=== PATIENT | male | born 1940 | race Caucasian/White ===

== ENCOUNTER 2018-04-13 05:36 | Observation (INO) | payer MEDICARE, OTHER ==
--- NOTE | 2018-04-10 11:24 | Diagnostic Imaging Report ---
PROCEDURE: Frontal and lateral views of the chest. COMPARISON: Patients [facility], DX, CHEST 2 VIEWS, 10/16/2016, 15:41. INDICATIONS: PREOPERATIVE CHEST XRAY FOR KNEE SURGERY FINDINGS: Lines/tubes: None. Lungs: The lungs are well inflated. Mild patchy bibasilar opacities, left greater than right. No evidence of lobar consolidation or pulmonary edema. Pleura: There is no pleural effusion or pneumothorax. Heart and mediastinum: The cardiomediastinal silhouette is unchanged. Status post CABG. Bones: No acute bony abnormality. Status post median sternotomy. IMPRESSION: No evidence of pulmonary edema or lobar pneumonia. Mild patchy bibasilar opacities, likely atelectasis. Dictated by: GABY CASTANEDA M.D. on 04/10/2018 at 10:24 Electronically approved by: GABY CASTANEDA M.D. on 04/10/2018 at 10:24
[~2018-04-13] VITALS: Ht 193 cm; Wt 117.9 kg
[~2018-04-13 05:36] MED LIST: ALEVE220 MG PO; ASPIR 8181 MG PO; CARVEDILOL25 MG PO; COLACE PO; FLOMAX0.4 MG PO; FUROSEMIDE20 MG PO; LOSARTAN POTASS50 MG PO; NITROFURANTOIN100 MG PO; SIMVASTATIN40 MG PO; TYLENOL PO; ZETIA10 MG PO
[2018-04-13] MEDS ORDERED: ROPIVACAINE 246.25 MG, EPINEPHRINE HCL 1:1000 0.5 MG, CLONIDINE HCL 0.08 MG, KETOROLAC ... INJ ONE ×5 (06:00)
[2018-04-13] MEDS ORDERED: CELECOXIB 200 MG CAP ONE (06:04)
[2018-04-13] MEDS ORDERED: DEXAMETHASONE SOD PHOS 10 MG/1 ML VIAL ONE (06:04)
[2018-04-13] MEDS ORDERED: CEFAZOLIN SOD 2 GM/D5W 50ML 50 ML IV ONE (06:05)
[2018-04-13] MEDS ORDERED: GABAPENTIN 300 MG CAP ONE (06:05)
[2018-04-13] MEDS ORDERED: MUPIROCIN 2% OINT 22 GM TUBE ONE (06:50)
[2018-04-13] MEDS ORDERED: BACITRACIN 50,000 UNIT VIAL ONE (06:50)
[2018-04-13] MEDS ORDERED: TRANEXAMIC ACID 1,000 MG/10 ML ML ONE (06:50)
[2018-04-13] MEDS ORDERED: ACETAMINOPHEN 650 MG SUPP PR PRN (10:00)
[2018-04-13] MEDS ORDERED: PROMETHAZINE HCL (IM) 25 MG/ML VIAL IM PRN (10:00)
[2018-04-13] MEDS ORDERED: ONDANSETRON HCL INJ 2 MG/ML VIAL IV PRN (10:00)
[2018-04-13] MEDS ORDERED: HYDROCODONE/APAP 5MG-325MG TAB PO PRN (10:00)
[2018-04-13] MEDS ORDERED: DOCUSATE SODIUM 100 MG CAP PO PRN (10:00)
[2018-04-13] MEDS ORDERED: HYDROCODONE/APAP 7.5MG-325MG 1 EA TAB PO PRN (10:00)
[2018-04-13] MEDS ORDERED: DIPHENHYDRAMINE HCL INJ 50 MG/ML VIAL IM/IV PRN (10:00)
[2018-04-13] MEDS ORDERED: KETOROLAC TROMETHAMINE 30 MG/ML VIAL IV PRN (10:00)
--- NOTE | 2018-04-13 11:36 | Diagnostic Imaging Report ---
PROCEDURE: X-RAY RIGHT KNEE, ONE OR TWO VIEWS COMPARISON: None. INDICATIONS:POST OP KNEE FINDINGS: See conclusion. CONCLUSION: Status post total right knee arthroplasty and patellar resurfacing with surrounding soft tissue swelling, air and david consistent with recent surgery. Alignment is anatomic. Hardware appears intact. No evidence of acute fracture. Dictated by: GABY CASTANEDA M.D. on 04/13/2018 at 11:42 Electronically approved by: GABY CASTANEDA M.D. on 04/13/2018 at 11:42
[2018-04-13] MEDS: ACETAMINOPHEN 1000 MG/100 ML IV SCH ×2 (12:00→18:30)
[2018-04-13 12:32] VITALS: BP 132/88
[2018-04-13 13:21] VITALS: BP 132/88
[2018-04-13] MEDS ORDERED: ROPIVACAINE 0.5% 5 MG/ML 30 ML SDV ONE (13:47)
[2018-04-13] MEDS ORDERED: LIDOCAINE 2% /EPINEPHRINE 20 ML SDV INJ ONE (13:47)
[2018-04-13] MEDS ORDERED: MIDAZOLAM HCL 2 MG/2 ML VIAL ONE (13:55)
[2018-04-13] MEDS ORDERED: FENTANYL CITRATE/PF 100MCG/2 ML INJ ONE (13:55)
[2018-04-13] MEDS ORDERED: CEFAZOLIN SOD 1 GM/D5W 50ML 50 ML IV SCH (14:00)
[2018-04-13] MEDS ORDERED: CELECOXIB 100 MG CAP PO SCH (17:00)
[2018-04-13] MEDS: NYSTATIN 100,000 UNITS/GM CRM 30GM TUBE TOP SCH (17:00)
[2018-04-13] MEDS ORDERED: NEOSTIGMINE 5 MG/5ML SYR ONE (18:04)
[2018-04-13] MEDS ORDERED: ONDANSETRON HCL INJ 2 MG/ML VIAL ONE (18:04)
[2018-04-13] MEDS ORDERED: PROPOFOL IV EMULSION 10 MG/ML 20 ML VIAL ONE (18:04)
[2018-04-13] MEDS ORDERED: GLYCOPYRROLATE INJ 1MG/ 5 ML SYR ONE (18:04)
[2018-04-13] MEDS ORDERED: LIDOCAINE HCL 2% LOCAL INJ 5 ML SDV VIAL INJ ONE (18:04)
[2018-04-13] MEDS ORDERED: FAMOTIDINE 20 MG/2 ML VIAL IV ONE (18:04)
[2018-04-13] MEDS ORDERED: DEXAMETHASONE SOD PHOS INJ 4 MG/ML VIAL ONE (18:04)
[2018-04-13] MEDS ORDERED: SEVOFLURANE INHAL SOLN 250 ML PEN BTL ONE (18:04)
[2018-04-13] MEDS ORDERED: ROCURONIUM BROMIDE 10 MG/ML 5ML VIAL ONE (18:04)
[2018-04-13] MEDS: SODIUM CHLORIDE 0.9% 1000ML 1,000 ML IV SCH ×2 (18:30→20:24)
[2018-04-13] MEDS: CEFAZOLIN SOD 1 GM VIAL IV SCH (18:30)
[2018-04-13] MEDS: CARVEDILOL 12.5 MG TAB PO SCH (18:30)
[2018-04-13] MEDS: ASPIRIN 325 MG TAB PO SCH (18:30)
[2018-04-13] MEDS: CELECOXIB 200 MG CAP PO SCH (18:30)
--- NOTE | 2018-04-13 18:50 | Diagnostic Imaging Report ---
PROCEDURE:X-RAY LEFT HAND, THREE OR MORE VIEWS COMPARISON:None. INDICATIONS:FALL FINDINGS: There are no fractures, dislocations, lytic or blastic lesions. The soft-tissues are unremarkable. CONCLUSION: No acute fracture or dislocation of the left hand. Dictated by: León Hill M.D. on 04/13/2018 at 18:56 Electronically approved by: León Hill M.D. on 04/13/2018 at 18:56
--- NOTE | 2018-04-13 18:51 | Diagnostic Imaging Report ---
PROCEDURE:X-RAY LEFT FOREARM, TWO VIEWS COMPARISON:None. INDICATIONS:FALL FINDINGS: There are no fractures, dislocations, lytic or blastic lesions. The bones are well-mineralized. The soft-tissues are unremarkable. Incidentally seen olecranon spurring. CONCLUSION: No acute fracture or dislocation of the left forearm. Dictated by: León Hill M.D. on 04/13/2018 at 18:57 Electronically approved by: León Hill M.D. on 04/13/2018 at 18:57
--- NOTE | 2018-04-13 18:52 | Diagnostic Imaging Report ---
PROCEDURE:X-RAY LEFT HUMERUS, TWO OR MORE VIEWS COMPARISON:None. INDICATIONS:FALL FINDINGS: See conclusion. CONCLUSION: No acute fracture or dislocation of the left humerus. Dictated by: León Hill M.D. on 04/13/2018 at 18:58 Electronically approved by: León Hill M.D. on 04/13/2018 at 18:58
[2018-04-13 20:00] VITALS: BP 125/64
[2018-04-13] MEDS ORDERED: SIMVASTATIN 40 MG TAB PO SCH (21:00)
[2018-04-13] MEDS ORDERED: LOSARTAN POTASSIUM 100 MG TAB PO SCH (21:00)
[2018-04-13] MEDS ORDERED: ZOLPIDEM TARTRATE 5 MG TAB PO PRN (21:00)
[2018-04-13 22:44] VITALS: BP 125/64
[2018-04-14] VITALS: BP 133/63
[2018-04-14] MEDS: ACETAMINOPHEN 1000 MG/100 ML IV SCH ×2 (00:16→05:08)
[2018-04-14] MEDS: CEFAZOLIN SOD 1 GM VIAL IV SCH ×2 (00:16→09:50)
[2018-04-14 04:00] VITALS: BP 149/65
[2018-04-14] MEDS: SODIUM CHLORIDE 0.9% 1000ML 1,000 ML IV SCH (05:07)
[2018-04-14 06:09] LABS: HEMATOCRIT 33.8 % (38.2-49.6); HEMOGLOBIN 11.2 g/dL (14.0-18.0)
[2018-04-14 08:00] VITALS: BP 143/65
[2018-04-14] MEDS ORDERED: FUROSEMIDE 40 MG TAB PO SCH (09:00)
[2018-04-14] MEDS ORDERED: EZETIMIBE 10 MG TAB PO SCH (09:00)
[2018-04-14] MEDS ORDERED: TAMSULOSIN HCL 0.4 MG CAP PO SCH (09:00)
[2018-04-14] MEDS ORDERED: FUROSEMIDE 20 MG TAB PO SCH (09:00)
[2018-04-14] MEDS: NYSTATIN 100,000 UNITS/GM CRM 30GM TUBE TOP SCH (09:00)
[2018-04-14] MEDS ORDERED: SIMVASTATIN 40 MG TAB PO SCH (09:00)
[2018-04-14] MEDS: ASPIRIN 325 MG TAB PO SCH (09:50)
[2018-04-14] MEDS: CARVEDILOL 12.5 MG TAB PO SCH (09:50)
[2018-04-14] MEDS: CELECOXIB 200 MG CAP PO SCH (09:50)
[2018-04-14] MEDS ORDERED: ACETAMINOPHEN 1000 MG/100 ML IV PRN (10:00)
--- NOTE | 2018-04-14 10:44 | Operative Report ---
DATE OF PROCEDURE: April 13, 2018 MANUFACTURED BUILDINGS SUPERVISOR: Clint Mckeon PA-C The patient was brought to the operating room for induction of anesthesia. Throughout this case, my PA's assistance was necessary for retraction of soft tissue and positioning of the extremity. This allows for efficient and technically successful execution of the operation and is considered medically necessary. PREOPERATIVE DIAGNOSIS: Osteoarthritis, right knee. POSTOPERATIVE DIAGNOSIS: Osteoarthritis, right knee. PROCEDURE: Right total knee arthroplasty. INDICATIONS: The patient is a 77-year-old gentleman who has end-stage arthritis of his right knee. He has failed conservative management and would like to proceed with a right total knee replacement. The risks and benefits have been discussed. He states he understands and wishes to proceed. DESCRIPTION OF PROCEDURE: The patient was brought to the operating room and placed under general anesthetic. He received a regional block, prophylactic antibiotics and transexamic acid in the holding area. His right lower extremity was prepped and draped in a sterile manner. A preoperative time out was performed. The extremity was exsanguinated, and a proximal tourniquet was inflated to 300 mmHg. An anterior approach with a medial parapatellar arthrotomy was performed. Clear synovial fluid was removed from the joint. Soft-tissue releases were performed to bring the knee up into flexion with the patella everted. The cruciate ligaments were sacrificed. A [employer] II posterior stabilized knee system was used throughout the case. Meniscal remnants and marginal osteophytes were also removed. An extramedullary cutting guide was used to resect the proximal tibia. The tibial baseplate was noted to be a size #7. The central fin punch was impacted, and attention was directed towards the distal femur. An intramedullary cutting guide was used to resect the distal femur in 6 degrees of valgus and external rotation referencing off of a combination of landmarks including Ringling's line, the epicondylar axis and the posterior condyles. The femoral component was also noted to be a size #7. The anterior and posterior cuts were made. Trial reductions were performed. An 11-mm tibial insert provided optimal soft-tissue balancing in full extension and 90 degrees of flexion. The patella was resurfaced with a 35-mm x 9-mm patellar button. The thickness was checked before and after resurfacing and was right around 24 mm. Patellar tracking was noted to be concentric. The trial implants were then all removed. A 100-mL premixed pericapsular HARSHIL injection was placed into the surrounding soft tissue. The knee was thoroughly irrigated with a shower-tip pulsatile lavage. The components were cemented into place using a single mix of Palacos cement preloaded with antibiotics. Care was taken to remove extravasated cement. The knee was further irrigated while the cement cured. The arthrotomy was then closed with interrupted #1 Ethibond. The knee was put through flexion and extension to ensure a secure closure. The skin was closed with subcuticular Vicryl and david. A sterile Aquacel dressing was placed. The patient was extubated and transported to the recovery room in stable condition. Estimated blood loss was minimal. All needle and sponge counts were correct. Job#: [id number]
[2018-04-14] MEDS ORDERED: ASPIRIN325 MG PO (11:41)
[2018-04-14 12:00] VITALS: BP_SYST 118; BP_SYST 143; BP_DIAS 60; BP_DIAS 65
[2018-04-14] MEDS ORDERED: HYDROCODON-ACE1 EA12 PO (14:59)
== END 2018-04-14 16:50 | disposition home health service (06) ==
LOC: OR 05:36 → PACU V 09:52 → MED/SURG 12:02
PROVIDERS: ADMIT Specialist; ATTEND Specialist
DX: M17.11 Unilateral primary osteoarthritis, right knee (principal); E78.00 Pure hypercholesterolemia, unspecified; Z95.1 Presence of aortocoronary bypass graft; Z82.49 Family history of ischemic heart disease and other diseases of the circulatory system; I25.10 Atherosclerotic heart disease of native coronary artery without angina pectoris; I11.9 Hypertensive heart disease without heart failure; I25.2 Old myocardial infarction; E78.5 Hyperlipidemia, unspecified; J44.9 Chronic obstructive pulmonary disease, unspecified; D64.9 Anemia, unspecified
CPT/HCPCS: 27447; 36415; 71046; 73060; 73090; 73130; 73560; 85014; 85018; 86850; 86900; 86920; 93005; 97116; 97139 ×2; 97162; 97530 ×2; G0378 ×2; G8978; G8979; J0171; J0690 ×2; J1100 ×2; J1885; J2001 ×2; J2250; J2405; J2795; J3490; J7030 ×2; J1200

== ENCOUNTER 2018-05-21 11:02 | Inpatient (IN) | payer MEDICARE, OTHER ==
[~2018-05-21] VITALS: Ht 193 cm; Wt 111.3 kg
[~2018-05-21 11:02] MED LIST changes: +ASPIRIN325 MG PO; +HYDROCODON-ACE1 EA12 PO
[2018-05-21] MEDS ORDERED: SODIUM CHLORIDE 0.9% 500ML 500 ML ONE (11:29)
[2018-05-21 11:36] LABS: BASOPHILS # (AUTO) 0.1 (0.0-0.1); BASOPHILS % 0.8 % (0.0-1.0); EOSINOPHILS # (AUTO) 0.3 (0.0-0.4); EOSINOPHILS % 1.9 % (0.0-6.0); HEMATOCRIT 37.4 % (38.2-49.6); HEMOGLOBIN 11.7 g/dL (14.0-18.0); LYMPHOCYTES # (AUTO) 1.6 (1.0-3.2); MEAN CORPUSCULAR HGB CONC 31.3 g/dL (31-35); MEAN CORPUSCULAR VOLUME 95.9 fL (81-99); MONOCYTES # (AUTO) 0.8 (0.2-0.8); NEUTROPHILS # (AUTO) 12.4 (2.1-6.9); PLATELET COUNT 384 x10e3/uL (140-360); RED CELL DISTRIBUTION WIDTH 13.7 % (11.7-14.4)
[2018-05-21 11:49] LABS: INR 0.99
[2018-05-21 11:50] LABS: PARTIAL THROMBOPLASTIN TIME 26.2 seconds (23.8-35.5)
[2018-05-21] MEDS ORDERED: CEFTRIAXONE SOD 1 GM VIAL IV ONE (12:00)
--- NOTE | 2018-05-21 12:01 | Diagnostic Imaging Report ---
EXAMINATION: CHEST SINGLE (PORTABLE) INDICATION: Chest pain COMPARISON: None FINDINGS: TUBES and LINES: None. LUNGS: Lungs are well inflated. Mild chronic appearing changes in the lungs with what appears to be minimal scarring/atelectasis at the lung bases There is no evidence of pneumonia or pulmonary edema. PLEURA: No pleural effusion or pneumothorax. HEART AND MEDIASTINUM: Prominent heart with sternal wires. BONES AND SOFT TISSUES: No acute osseous lesion. Soft tissues are unremarkable. UPPER ABDOMEN: No free air under the diaphragm. IMPRESSION: Prominent heart size. Mild chronic appearing changes in the lungs with what appears to be minimal scarring/atelectasis at the lung bases. Signed by: Dr. Yaw Mata M.D. on 05/21/2018 11:57 AM
[2018-05-21 12:03] LABS: ALBUMIN 2.9 g/dL (3.5-5.0); ALBUMIN/GLOBULIN RATIO 0.7 (0.8-2.0); ANION GAP 19.5 mmol/L (8-16); CALCIUM 9.5 mg/dL (8.4-10.2); CREATININE, SERUM 1.56 mg/dL (0.72-1.25); POTASSIUM 4.5 mmol/L (3.5-5.1)
[2018-05-21] MEDS ORDERED: SODIUM CHLORIDE 0.9% 500ML 500 ML IV STA (12:20)
[2018-05-21] MEDS ORDERED: SODIUM CHLORIDE 0.9% 50ML 50 ML ONE (13:23)
[2018-05-21] MEDS ORDERED: IOPAMIDOL 370 MG/ML 200 ML INFUS..BTL INJ ONE (13:23)
--- NOTE | 2018-05-21 13:35 | Diagnostic Imaging Report ---
EXAM: CT Chest WITH contrast 05/21/2018 11:56 AM INDICATION: Shortness of breath. Pulmonary embolism COMPARISON: Radiograph 05/21/2018 TECHNIQUE: Chest was scanned utilizing a multidetector helical scanner from the lung apex through the level of the adrenal glands without administration of IV contrast. Coronal and sagittal reformations were obtained. Pulmonary embolism protocol was performed. IV CONTRAST: 100 mL of Isovue-370 RADIATION DOSE: Total DLP: 559.47 mGy*cm Estimated effective dose: (DLP x 0.014 x size factor) mSv COMPLICATIONS: None FINDINGS: No pulmonary embolism is seen. LINES/ TUBES: Sternal wires. Postsurgical change to the heart. LUNGS AND AIRWAYS: Chronic appearing changes in the lungs with what appears to be scarring/atelectasis in the lung bases. No consolidative pneumonia. Airways are normal. PLEURA: The pleural spaces are clear. HEART AND MEDIASTINUM: The thyroid gland is normal. No mediastinal, hilar or axillary lymphadenopathy. The heart is normal in size. There is no pericardial effusion. 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 UPPER ABDOMEN: Small hiatal hernia. 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 SOFT TISSUES: Unremarkable. IMPRESSION: No pulmonary embolism is seen. Chronic appearing changes in the lungs with what appears to be scarring/atelectasis in the lung bases. No consolidative pneumonia, pleural effusion or pneumothorax Signed by: Dr. Yaw Mata M.D. on 05/21/2018 1:30 PM
[2018-05-21] MEDS ORDERED: SODIUM CHLORIDE 0.9% 1000ML 1,000 ML ONE (13:44)
[2018-05-21 13:50] LABS: ABG PCO2 37 mmHg (41-51); ABG PH 7.43 (7.31-7.41); ABG PO2 116 mmHg (80-105)
[2018-05-21 13:51] LABS: ABG HCO3 25 mmol/L (23-28)
[2018-05-21] MEDS: SODIUM CHLORIDE 0.9% 1000ML 1,000 ML IV SCH ×3 (15:01→16:38)
[2018-05-21 15:47] LABS: CLARITY,URINE CLEAR (CLEAR); COLOR,URINE YELLOW (YELLOW)
[2018-05-21 15:48] LABS: BACTERIA,URINE MODERATE /HPF; BILIRUBIN,URINE NEGATIVE (NEGATIVE); EPITHELIAL CELLS,URINE FEW /LPF; KETONES,URINE NEGATIVE (NEGATIVE); LEUKOCYTE ESTERASE ,URINE 1+ (NEGATIVE); NITRITE,URINE NEGATIVE (NEGATIVE); PROTEIN,URINE DIPSTICK TRACE (NEGATIVE); URINE UROBILINOGEN 0.2 mg/dL (0.2 - 1); WBC,URINE (MAN) >50 /HPF (0-5)
[2018-05-21] MEDS ORDERED: MORPHINE SULFATE 2 MG/ML SYR IV PRN (16:00)
[2018-05-21] MEDS ORDERED: ONDANSETRON HCL INJ 2 MG/ML VIAL IV PRN (16:00)
[2018-05-21 16:50] VITALS: BP 101/58
[2018-05-21 17:09] LABS: CREATINE KINASE MB 0.8 ng/mL (0-5.0)
[2018-05-21 17:11] VITALS: BP 101/58
[2018-05-21 20:00] VITALS: BP 158/76
[2018-05-21 21:00] VITALS: BP 158/76
[2018-05-22] VITALS (7 sets, daily range): BP systolic 134–182; BP diastolic 62–84
[2018-05-22 05:24] LABS: BASOPHILS # (AUTO) 0.1 (0.0-0.1); BASOPHILS % 0.5 % (0.0-1.0); EOSINOPHILS # (AUTO) 0.3 (0.0-0.4); EOSINOPHILS % 3.1 % (0.0-6.0); HEMATOCRIT 31.6 % (38.2-49.6); HEMOGLOBIN 10.1 g/dL (14.0-18.0); LYMPHOCYTES # (AUTO) 1.5 (1.0-3.2); LYMPHOCYTES % 15.6 % (18.0-39.1); MEAN CORPUSCULAR HEMOGLOBIN 30.2 pg (28-32); MEAN CORPUSCULAR VOLUME 94.6 fL (81-99); MONOCYTES # (AUTO) 0.7 (0.2-0.8); MONOCYTES % 6.9 % (4.4-11.3); NEUTROPHILS # (AUTO) 7.1 (2.1-6.9); NEUTROPHILS % 72.1 % (38.7-80.0); PLATELET COUNT 270 x10e3/uL (140-360); RED BLOOD COUNT 3.34 x10e6/uL (4.3-5.7); RED CELL DISTRIBUTION WIDTH 13.8 % (11.7-14.4)
--- NOTE | 2018-05-22 05:32 | History and Physical ---
REASON FOR ADMISSION: Sepsis secondary to urinary tract infection. HISTORY OF PRESENT ILLNESS: Patient is an elderly gentleman who started having increasing dizziness, weakness, and diaphoresis where he felt it was severe enough that he then presented to the emergency room where he was noticed to have evidence of probable urinary tract infection. So, he has been admitted for evaluation and treatment. PAST MEDICAL HISTORY: Hypertension. MEDICATIONS: See MAR. ALLERGIES: . SOCIAL HISTORY: Nonsmoker, nondrinker. FAMILY HISTORY: Hypertension. PHYSICAL EXAMINATION VITALS: Currently, blood pressure 151/76, temperature 96.5, pulse 76, and sats 99%. GENERAL: No apparent distress, lying in bed. NECK: Supple. No lymphadenopathy. CARDIOVASCULAR: Regular rate and rhythm. LUNGS: Clear to auscultation bilaterally. ABDOMEN: Good bowel sounds. Soft, nontender. EXTREMITIES: No clubbing or cyanosis. NEUROLOGIC: Nonfocal. He is alert and oriented times 3. ASSESSMENT AND PLAN 1. Sepsis secondary to urinary tract infection, continue with intravenous antibiotics and check cultures. 2. Hypertension, continue with monitoring. 3. Chronic kidney disease stage 3, we will continue to monitor. 4. Leukocytosis. We will check a complete blood count. Please see hospital chart for full details. Job#: [id number]
[2018-05-22 05:45] LABS: ALANINE AMINOTRANSFERASE 14 IU/L (0-55); ALBUMIN 2.5 g/dL (3.5-5.0); ALBUMIN/GLOBULIN RATIO 0.7 (0.8-2.0); ALKALINE PHOSPHATASE 139 IU/L (40-150); BLOOD UREA NITROGEN 27 mg/dL (7-26); BUN/CREATININE RATIO 25 (6-25); CALCIUM 8.8 mg/dL (8.4-10.2); CARBON DIOXIDE 23 mmol/L (22-29); CHLORIDE 111 mmol/L (98-107); CREATININE, SERUM 1.06 mg/dL (0.72-1.25); EST GLOMERULAR FILTRATION RATE > 60 ML/MIN (60-); GLUCOSE 93 mg/dL (74-118); SODIUM 144 mmol/L (136-145)
[2018-05-22] MEDS: CEFTRIAXONE SOD 1 GM VIAL IV SCH (09:00)
[2018-05-22] MEDS ORDERED: HYDROCODONE/APAP 7.5MG-325MG 1 EA TAB PO PRN ×2 (13:00→21:30)
[2018-05-22] MEDS: FUROSEMIDE 20 MG TAB PO SCH (13:00)
[2018-05-22] MEDS: CARVEDILOL 12.5 MG TAB PO SCH ×2 (13:30→16:56)
[2018-05-22] MEDS: BALSAM PERU/CASTOR OIL 60 GM OINT...G. TP SCH (17:00)
[2018-05-22] MEDS ORDERED: CARVEDILOL 12.5 MG TAB PO SCH (17:00)
[2018-05-22] MEDS: SIMVASTATIN 40 MG TAB PO SCH (20:42)
[2018-05-22] MEDS: LOSARTAN POTASSIUM 25 MG TAB PO SCH (20:42)
[2018-05-22] MEDS: TAMSULOSIN HCL 0.4 MG CAP PO SCH (20:42)
[2018-05-23] VITALS (9 sets, daily range): BP systolic 84–147; BP diastolic 53–76
[2018-05-23] MEDS: CARVEDILOL 12.5 MG TAB PO SCH ×2 (08:00→17:00)
[2018-05-23] MEDS: CEFTRIAXONE SOD 1 GM VIAL IV SCH (09:00)
[2018-05-23] MEDS: ASPIRIN 81 MG CHEW TAB PO SCH (09:00)
[2018-05-23] MEDS: BALSAM PERU/CASTOR OIL 60 GM OINT...G. TP SCH ×2 (09:00→17:00)
[2018-05-23] MEDS: FUROSEMIDE 20 MG TAB PO SCH (09:00)
[2018-05-23] MEDS: EZETIMIBE 10 MG TAB PO SCH (09:00)
[2018-05-23] MEDS: LOSARTAN POTASSIUM 25 MG TAB PO SCH (20:47)
[2018-05-23] MEDS: TAMSULOSIN HCL 0.4 MG CAP PO SCH (20:48)
[2018-05-23] MEDS: SIMVASTATIN 40 MG TAB PO SCH (20:48)
[2018-05-23] MEDS ORDERED: SIMVASTATIN 40 MG TAB PO SCH (21:00)
[2018-05-23] MEDS ORDERED: TAMSULOSIN HCL 0.4 MG CAP PO SCH (21:00)
[2018-05-24 05:32] LABS: BASOPHILS # (AUTO) 0.1 (0.0-0.1); BASOPHILS % 0.7 % (0.0-1.0); EOSINOPHILS # (AUTO) 0.3 (0.0-0.4); EOSINOPHILS % 2.5 % (0.0-6.0); HEMATOCRIT 32.3 % (38.2-49.6); HEMOGLOBIN 10.1 g/dL (14.0-18.0); LYMPHOCYTES # (AUTO) 1.7 (1.0-3.2); LYMPHOCYTES % 16.8 % (18.0-39.1); MEAN CORPUSCULAR HEMOGLOBIN 29.2 pg (28-32); MEAN CORPUSCULAR HGB CONC 31.3 g/dL (31-35); MEAN CORPUSCULAR VOLUME 93.4 fL (81-99); MONOCYTES % 9.7 % (4.4-11.3); NEUTROPHILS # (AUTO) 7.1 (2.1-6.9); NEUTROPHILS % 69.1 % (38.7-80.0); PLATELET COUNT 284 x10e3/uL (140-360); RED BLOOD COUNT 3.46 x10e6/uL (4.3-5.7); RED CELL DISTRIBUTION WIDTH 13.9 % (11.7-14.4)
[2018-05-24 05:37] VITALS: BP 131/61
[2018-05-24 05:54] LABS: ALANINE AMINOTRANSFERASE 12 IU/L (0-55); ALBUMIN 2.6 g/dL (3.5-5.0); ALBUMIN/GLOBULIN RATIO 0.6 (0.8-2.0); ALKALINE PHOSPHATASE 121 IU/L (40-150); ANION GAP 12.8 mmol/L (8-16); BLOOD UREA NITROGEN 25 mg/dL (7-26); BUN/CREATININE RATIO 25 (6-25); CARBON DIOXIDE 26 mmol/L (22-29); CHLORIDE 104 mmol/L (98-107); CREATININE, SERUM 1.01 mg/dL (0.72-1.25); EST GLOMERULAR FILTRATION RATE > 60 ML/MIN (60-); GLUCOSE 100 mg/dL (74-118); POTASSIUM 3.8 mmol/L (3.5-5.1); SODIUM 139 mmol/L (136-145)
[2018-05-24] MEDS ORDERED: BISACODYL 5 MG TAB EC PO SCH (07:15)
[2018-05-24] MEDS: CARVEDILOL 12.5 MG TAB PO SCH ×2 (08:00→16:57)
[2018-05-24 08:24] VITALS: BP 122/61
[2018-05-24] MEDS: EZETIMIBE 10 MG TAB PO SCH (09:00)
[2018-05-24] MEDS: CEFTRIAXONE SOD 1 GM VIAL IV SCH (09:00)
[2018-05-24] MEDS: BALSAM PERU/CASTOR OIL 60 GM OINT...G. TP SCH ×2 (09:00→16:57)
[2018-05-24] MEDS: ASPIRIN 81 MG CHEW TAB PO SCH (09:00)
[2018-05-24] MEDS: FUROSEMIDE 20 MG TAB PO SCH (09:00)
[2018-05-24 10:44] VITALS: BP 122/61
[2018-05-24 12:01] VITALS: BP 123/66
[2018-05-24 16:39] VITALS: BP 121/57
[2018-05-24 20:08] VITALS: BP 112/55
[2018-05-24] MEDS: LOSARTAN POTASSIUM 25 MG TAB PO SCH (21:19)
[2018-05-24] MEDS: TAMSULOSIN HCL 0.4 MG CAP PO SCH (21:19)
[2018-05-24] MEDS: SIMVASTATIN 40 MG TAB PO SCH (21:19)
[2018-05-25] VITALS: BP 115/56
[2018-05-25 05:23] VITALS: BP 115/57
[2018-05-25 07:37] VITALS: BP 134/65
[2018-05-25] MEDS: CARVEDILOL 12.5 MG TAB PO SCH (08:10)
[2018-05-25] MEDS: ASPIRIN 81 MG CHEW TAB PO SCH (08:10)
[2018-05-25] MEDS: EZETIMIBE 10 MG TAB PO SCH (08:10)
[2018-05-25] MEDS: FUROSEMIDE 20 MG TAB PO SCH (09:00)
[2018-05-25] MEDS: CEFTRIAXONE SOD 1 GM VIAL IV SCH (09:00)
[2018-05-25] MEDS: BALSAM PERU/CASTOR OIL 60 GM OINT...G. TP SCH (09:00)
== END 2018-05-25 09:25 | disposition home or self-care (01) | DRG 872 ==
LOC: ER 11:02 → ERHOLD 15:55 → MED/SURG2 16:46
PROVIDERS: ADMIT Internal Medicine; ATTEND Internal Medicine
DX: A41.89 Other specified sepsis (principal); N39.0 Urinary tract infection, site not specified; N17.9 Acute kidney failure, unspecified; I12.9 Hypertensive chronic kidney disease with stage 1 through stage 4 chronic kidney disease, or unspecified chronic kidney disease; N18.3 Chronic kidney disease, stage 3 (moderate); E78.5 Hyperlipidemia, unspecified; D64.9 Anemia, unspecified
CPT/HCPCS: 36415; 36600; 71045; 71260; 80053; 81001; 82550; 82553; 82805; 83605; 83735; 83880; 84484; 85025; 85379; 85610; 85730; 87040; 93005; 97139; 99285; J0696; J7030; J7040; Q9967

== ENCOUNTER → 2020-09-28 | Day surgery (SDC) | payer MEDICARE, OTHER ==
[2020-09-25 12:33] LABS: BASOPHILS # (AUTO) 0.1 (0.0-0.1); BASOPHILS % 0.8 % (0.0-1.0); EOSINOPHILS # (AUTO) 0.3 (0.0-0.4); EOSINOPHILS % 3.6 % (0.0-6.0); HEMATOCRIT 36.7 % (38.2-49.6); HEMOGLOBIN 11.9 g/dL (14.0-18.0); LYMPHOCYTES # (AUTO) 1.2 (1.0-3.2); LYMPHOCYTES % 15.7 % (18.0-39.1); MEAN CORPUSCULAR HEMOGLOBIN 31.9 pg (28-32); MEAN CORPUSCULAR HGB CONC 32.4 g/dL (31-35); MEAN CORPUSCULAR VOLUME 98.4 fL (81-99); MONOCYTES # (AUTO) 0.7 (0.2-0.8); MONOCYTES % 9.3 % (4.4-11.3); NEUTROPHILS # (AUTO) 5.3 (2.1-6.9); NEUTROPHILS % 69.8 % (38.7-80.0); PLATELET COUNT 142 x10e3/uL (140-360); RED BLOOD COUNT 3.73 x10e6/uL (4.3-5.7); RED CELL DISTRIBUTION WIDTH 12.8 % (11.7-14.4)
[2020-09-25 12:51] LABS: ALBUMIN 3.6 g/dL (3.5-5.0); ALBUMIN/GLOBULIN RATIO 0.9 (0.8-2.0); ANION GAP 16.1 mmol/L (8-16); CREATININE, SERUM 1.77 mg/dL (0.72-1.25); POTASSIUM 5.1 mmol/L (3.5-5.1)
[~2020-09-28] MED LIST changes: +ACETAMINOPHEN 1000 MG/100 ML 100 ML IV ONE; +BUPIVACAINE HCL 0.5% INJ 30 ML VIAL INJ ONE; +COLACE100 MG PO; +DEXAMETHASONE SOD PHOS INJ 4 MG/ML VIAL ONE; +FENTANYL CITRATE/PF 100MCG/2 ML INJ ONE; +GLYCOPYRROLATE INJ 0.2 MG/ML VIAL ONE; +LIDOCAINE HCL 2% JELLY 5 ML TUBE ONE; +LIDOCAINE HCL 2% LOCAL INJ 5 ML SDV VIAL INJ ONE; +MULTI-VITAMIN1 EACH PO; +NEOSTIGMINE 1 MG/ML 10ML VIAL ONE; +ONDANSETRON HCL INJ 2MG/ML 2ML 2 MG/ML VIAL ONE; +PROPOFOL IV EMULSION 10 MG/ML 20 ML VIAL ONE; +ROCURONIUM BROMIDE 10 MG/ML 5ML VIAL IV ONE; +SEVOFLURANE INHAL SOLN 250 ML PEN BTL ONE; +VITAMIN C500 MG PO
[2020-09-28 12:15] VITALS: BP 134/76
== END | disposition home or self-care (01) ==
LOC: OR 07:55
PROVIDERS: ATTEND Surgery
DX: K81.1 Chronic cholecystitis (principal); K76.89 Other specified diseases of liver; C61 Malignant neoplasm of prostate; M19.90 Unspecified osteoarthritis, unspecified site; I25.810 Atherosclerosis of coronary artery bypass graft(s) without angina pectoris; I25.2 Old myocardial infarction; E78.5 Hyperlipidemia, unspecified; I12.9 Hypertensive chronic kidney disease with stage 1 through stage 4 chronic kidney disease, or unspecified chronic kidney disease; N18.9 Chronic kidney disease, unspecified; H54.8 Legal blindness, as defined in USA; R06.02 Shortness of breath; Z88.6 Allergy status to analgesic agent; Z01.812 Encounter for preprocedural laboratory examination; Z01.818 Encounter for other preprocedural examination; Z20.822 Contact with and (suspected) exposure to COVID-19; Z79.82 Long term (current) use of aspirin; Z68.35 Body mass index [BMI] 35.0-35.9, adult; Z92.3 Personal history of irradiation; Z95.1 Presence of aortocoronary bypass graft
CPT/HCPCS: 36415; 47562; 71046; 80053; 85025; 88304; J0131; J3010; U0002; J1100; J2001; J2405; J2710

== ENCOUNTER → 2021-07-06 | Outpatient (CLI) | payer MEDICARE, OTHER ==
[~2021-07-06] MED LIST changes: -ACETAMINOPHEN 1000 MG/100 ML 100 ML IV ONE; -BUPIVACAINE HCL 0.5% INJ 30 ML VIAL INJ ONE; -DEXAMETHASONE SOD PHOS INJ 4 MG/ML VIAL ONE; -FENTANYL CITRATE/PF 100MCG/2 ML INJ ONE; -GLYCOPYRROLATE INJ 0.2 MG/ML VIAL ONE; -LIDOCAINE HCL 2% JELLY 5 ML TUBE ONE; -LIDOCAINE HCL 2% LOCAL INJ 5 ML SDV VIAL INJ ONE; -NEOSTIGMINE 1 MG/ML 10ML VIAL ONE; -ONDANSETRON HCL INJ 2MG/ML 2ML 2 MG/ML VIAL ONE; -PROPOFOL IV EMULSION 10 MG/ML 20 ML VIAL ONE; -ROCURONIUM BROMIDE 10 MG/ML 5ML VIAL IV ONE; -SEVOFLURANE INHAL SOLN 250 ML PEN BTL ONE
== END ==
LOC: US 08:20
PROVIDERS: ATTEND Specialist
DX: N18.32 Chronic kidney disease, stage 3b (principal)
CPT/HCPCS: 76770

== ENCOUNTER 2024-09-27 14:48 | Emergency (ER) | payer MEDICARE, OTHER ==
[~2024-09-27] VITALS: Ht 193 cm; Wt 113.4 kg
[2024-09-27 18:27] VITALS: PULSE 78; RESP 16; TEMP 97.8
[2024-09-27 18:31] VITALS: BP 154/82; PULSE 78; RESP 16; TEMP 97.8; O2SAT 98
== END 2024-09-27 18:34 | disposition home or self-care (01) ==
LOC: ER 15:18
DX: M54.50 Low back pain, unspecified (principal); S30.0XXA Contusion of lower back and pelvis, initial encounter; S70.11XA Contusion of right thigh, initial encounter; W18.2XXA Fall in (into) shower or empty bathtub, initial encounter; Y93.E1 Activity, personal bathing and showering; Y92.89 Other specified places as the place of occurrence of the external cause; I10 Essential (primary) hypertension; E78.5 Hyperlipidemia, unspecified; I25.10 Atherosclerotic heart disease of native coronary artery without angina pectoris; Z85.46 Personal history of malignant neoplasm of prostate; Z85.118 Personal history of other malignant neoplasm of bronchus and lung; Z95.1 Presence of aortocoronary bypass graft
CPT/HCPCS: 72192; 93970; 93971; 99283